=== PATIENT | female | born 1990 | race Caucasian/White ===

== ENCOUNTER 2021-01-06 13:10 | Emergency (ER) | payer BC, OTHER ==
[~2021-01-06] VITALS: Ht 157.5 cm; Wt 71.2 kg
[2021-01-06] MEDS ORDERED: PANTOPRAZOLE 40MG VIAL (C9113 PER 1) IV ONE (14:05)
[2021-01-06] MEDS ORDERED: NS 1,000 ML IV ONE (14:05)
[2021-01-06] MEDS ORDERED: ONDANSETRON 4MG/2ML VIAL IV ONE (14:05)
[2021-01-06 14:58] LABS: ALBUMIN 3.5 GM/DL (3.2-5.2); ALT/SGPT 103 U/L (12-78); BILIRUBIN,DIRECT 0.3 MG/DL (0.0-0.2); BILIRUBIN,TOTAL 0.6 MG/DL (0.2-1.0); BLOOD UREA NITROGEN 11 MG/DL (7-18); CALCIUM LEVEL 9.4 MG/DL (8.5-10.1); CARBON DIOXIDE LEVEL 28 MEQ/L (21-32); CHLORIDE LEVEL 99 MEQ/L (98-107); CREATININE FOR GFR 0.71 MG/DL (0.55-1.30); GLOMERULAR FILTRATION RATE > 60.0 (>60); GLUCOSE, FASTING 102 MG/DL (70-100); LIPASE 96 U/L (73-393); POTASSIUM SERUM 3.7 MEQ/L (3.5-5.1); SODIUM LEVEL 135 MEQ/L (136-145); TOTAL PROTEIN 7.4 GM/DL (6.4-8.2)
[2021-01-06 15:06] LABS: HCG, SERUM QUALITATIVE POSITIVE (NEGATIVE)
[2021-01-06 15:30] LABS: BASO % 0.1 % (0.0-1.0); HEMATOCRIT 42.2 % (36.0-47.0); HEMOGLOBIN 13.1 g/dl (12.0-15.5); LYMPH # 1.7 10^3/uL (1.5-5.0); LYMPH % 23.4 % (24.0-44.0); MEAN CORPUSCULAR HEMOGLOBIN 23.4 pg (27.0-33.0); MEAN CORPUSCULAR VOLUME 75.4 fl (80.0-96.0); MONO # 0.6 10^3/uL (0.0-0.8); NEUTROPHILS % 68.2 % (36.0-66.0); PLATELET COUNT, AUTOMATED 350 10^3/uL (150-450); WHITE BLOOD COUNT 7.4 10^3/uL (4.0-10.0)
[2021-01-06 16:12] LABS: HCG, SERUM QUANTITATIVE 359 MIU/ML
[2021-01-06] MEDS ORDERED: METOCLOPRAMIDE INJ 10MG/2ML VIAL (J2765 PER 1) IV ONE (16:15)
[2021-01-06] MEDS ORDERED: MORPHINE 2 MG/ML 1ML VIAL (J2270) IV ONE (16:40)
--- NOTE | 2021-01-06 17:28 | REPVR ---
PROCEDURE INFORMATION: Exam: US Pelvis Complete, Transabdominal and US Pelvis, Transvaginal Exam date and time: 01/06/2021 4:54 PM Age: 30 years old Clinical indication: Pelvic pain; Additional info: S/P ab R/O rpoc bleeding. S/P chemical 01/02, bleeding, nausea vomiting began 01/03 TECHNIQUE: Imaging protocol: Real-time transabdominal and transvaginal pelvic ultrasound (complete) with image documentation. Transvaginal imaging was used for better evaluation of the endometrium, adnexa, and/or cervix. COMPARISON: No relevant prior studies available. FINDINGS: Uterus/cervix: Anteverted. Uterus 8.9 x 3.8 x 5.2 cm transabdominally; 8.9 x 3.6 x 4.9 cm transvaginally. The cervical length is 3.64 cm. Closed. Endometrium 10.1 mm transabdominally. Transvaginal imaging demonstrates non-vascularized hypoechoic debris within the endometrial cavity, most prominent in the upper portion measuring 11.5 mm AP dimension. Right adnexa: Right ovary 3.4 x 1.6 x 2.1 cm transabdominally; 3.1 x 1.7 x 2.4 cm transvaginally. 2.1 cm corpus luteum. Normal right ovarian arterial and venous pulsed Doppler. Left adnexa: Left ovary 2.8 x 1.4 x 1.8 cm transabdominally; 1.8 x 2.4 x 1.5 cm transvaginally. No mass or cyst. Normal left ovarian arterial and venous pulsed Doppler. Intraperitoneal space: No intraperitoneal fluid. Urinary bladder: Normal. IMPRESSION: Nonspecific debris in the endometrial cavity. This could represent devascularized products of conception, or blood products. Electronically signed by: Asad Barroso On 01/06/2021 17:29:19 PM
[2021-01-06] MEDS ORDERED: BACT800T5 PO (18:42)
[2021-01-06] MEDS ORDERED: ZOFR4TAB16 PO (18:42)
[2021-01-06 18:48] VITALS: BP 158/70
--- NOTE | 2021-01-08 08:12 | ED PDOC ---
Post-Departure Follow-Up pelvic us faxed to [facility] fp for fu Sanaz Wang MD Jan 08, 2021 08:12
== END 2021-01-06 19:00 | disposition home or self-care (01) ==
LOC: M ED 13:10
DX: N93.9 Abnormal uterine and vaginal bleeding, unspecified (principal); N30.00 Acute cystitis without hematuria; R11.2 Nausea with vomiting, unspecified; Z88.8 Allergy status to other drugs, medicaments and biological substances
CPT/HCPCS: 76830; 76856; 80048; 80076; 81001; 83690; 84702; 84703; 85025; 87086; 93976; 96361; 96374; 96375; 99284; C9113; J2270; J2405; J2765